=== PATIENT | male | born 1960 | race Caucasian/White ===

== ENCOUNTER 2017-02-17 15:41 | Emergency (ER) | payer OTHER | END 2017-02-17 17:25 | disposition home or self-care (01) | LOC: ER 15:41 | DX: S61.012A Laceration without foreign body of left thumb without damage to nail, initial encounter (principal); Z23 Encounter for immunization; Z88.0 Allergy status to penicillin; Z88.1 Allergy status to other antibiotic agents; W26.0XXA Contact with knife, initial encounter | CPT/HCPCS: 90471 ==